=== PATIENT | male | born 1970 | race Two or more races ===

== ENCOUNTER 2019-06-24 16:21 | Emergency (ER) | payer OTHER ==
[~2019-06-24] VITALS: Ht 175.3 cm; Wt 79.4 kg
[~2019-06-24 16:21] MED LIST: ADVAIR HFA 115/12 GM; PROVENTIL2 MG; SINGULAIR 10MG10 MG; ZYRTEC5 MG
== END 2019-06-24 19:47 | disposition home or self-care (01) ==
LOC: ER 16:21
DX: J45.998 Other asthma (principal)

== ENCOUNTER 2020-03-08 08:38 | Emergency (ER) | payer OTHER ==
[~2020-03-08] VITALS: Ht 175.3 cm; Wt 82.6 kg
[2020-03-08] MEDS ORDERED: SYMBICORT 16010.2 GM (08:50)
== END 2020-03-08 12:18 | disposition home or self-care (01) ==
LOC: ER 08:38
DX: J45.998 Other asthma (principal)

== ENCOUNTER 2024-05-11 09:29 | Emergency (ER) | payer OTHER ==
[~2024-05-11] VITALS: Ht 177.8 cm; Wt 82.1 kg
[~2024-05-11 09:29] MED LIST changes: +SYMBICORT 16010.2 GM
[2024-05-11] MEDS ORDERED: COZAAR25 MG PO (10:09)
[2024-05-11] MEDS ORDERED: KETOROLAC TROMETHAMINE 60 MG VIAL IM STA (11:04)
[2024-05-11] MEDS ORDERED: ORPHENADRINE CITRATE 30 MG/ML AMPUL IM STA (11:05)
== END 2024-05-11 12:09 | disposition home or self-care (01) ==
LOC: ER 09:30
DX: M54.50 Low back pain, unspecified (principal); J45.909 Unspecified asthma, uncomplicated; I10 Essential (primary) hypertension
CPT/HCPCS: 72100; 96372; 99283; J1885; J2360